=== PATIENT | female | born 1970 | race African-American/Black ===

== ENCOUNTER → 2023-09-26 10:12 | Outpatient (REF) | payer OTHER, SELFPAY | LOC: HWWDC 10:12 | PROVIDERS: ATTENDING PHYSICIAN Family Medicine | DX: Z12.31 Encounter for screening mammogram for malignant neoplasm of breast (principal) | CPT/HCPCS: 77063; 77067 ==

== ENCOUNTER → 2023-10-15 06:29 | Day surgery (SDC) | payer OTHER, SELFPAY | LOC: GI 06:29 | PROVIDERS: ATTENDING PHYSICIAN Internal Medicine | DX: Z12.11 Encounter for screening for malignant neoplasm of colon (principal) | CPT/HCPCS: G0121 ==

== ENCOUNTER → 2024-06-30 12:24 | Outpatient (REF) | payer BC, SELFPAY | LOC: HWRAD 12:24 | PROVIDERS: ATTENDING PHYSICIAN Family Medicine | DX: Z87.09 Personal history of other diseases of the respiratory system (principal); J45.901 Unspecified asthma with (acute) exacerbation; R05.1 Acute cough | CPT/HCPCS: 71046 ==

== ENCOUNTER 2024-08-28 15:50 | Emergency (ER) | payer BC, SELFPAY ==
[2024-08-28 15:56] VITALS: BP 149/84
[2024-08-28 16:16] LABS: % Basophils 1.1 % (0-2); % Eosinophils 10.6 % (0-6); % Immature Granulocytes 0.2 % (0-0.5); % Lymphocytes 43.1 % (20.5-51.1); % Monocytes 4.6 % (1.7-9.3); % Neutrophils 40.4 % (42.2-75.2); Absolute Basophils 0.1 10^3/uL (0-0.2); Absolute Eosinophils 0.6 10^3/uL (0-0.7); Absolute Lymphocytes 2.4 10^3/uL (1.2-3.4); Absolute Monocytes 0.3 10^3/uL (0.1-0.6); Absolute Neutrophils 2.2 10^3/uL (1.4-6.5); Hematocrit 37.9 % (37.0-47.0); Hemoglobin 12.4 g/dL (12.0-16.0); Mean Corp Hgb Conc. 32.7 g/dL (33.0-37.0); Mean Corpuscular Hgb 29.6 pg (27.0-31.0); Mean Corpuscular Volume 90.5 fL (81.0-99.0); Mean Platelet Volume 9.5 fL (7.4-10.4); Nucleated Red Blood Cells % 0 %; Platelet Count 338 10^3/uL (130-400); Red Blood Cell Count 4.19 10^6/uL (4.20-5.40); Red Cell Dist. Width 13.6 % (11.5-14.5); White Blood Cell Count 5.5 10^3/uL (4.8-10.8)
[2024-08-28 16:24] LABS: HCG, Serum Qualitative Screen Negative
[2024-08-28 16:29] LABS: ALT (SGPT) 18 U/L (0-35); AST (SGOT) 27 U/L (14-36); Albumin 4.5 g/dl (3.5-5.0); Alkaline Phosphatase 63 U/L (38-126); Blood Urea Nitrogen 12 mg/dl (7-17); Calcium 9.3 mg/dl (8.4-10.2); Carbon Dioxide 25 mmol/L (22-30); Chloride 103 mmol/L (98-107); Glucose 102 mg/dl (70-99); Lipase 177 U/L (23-300); Potassium 4.3 mmol/L (3.5-5.1); Sodium 138 mmol/L (135-145); Total Bilirubin 0.2 mg/dl (0.2-1.3); Total Protein 7.8 g/dl (6.3-8.2); eGFR > 60.00
[2024-08-28 16:42] LABS: Troponin I < 0.012 ng/ml
[2024-08-28 19:11] VITALS: BP 120/86; BMI 23.1
[2024-08-28 19:56] LABS: Troponin I < 0.012 ng/ml
[2024-08-28] MEDS: MAALOX 40 PO (20:19)
[2024-08-28 21:03] VITALS: BP 129/90
--- NOTE | 2024-08-28 21:03 | EDRN ---
Patient states her pain is much better after meds, Ed, PA aware and will discharge patient, patient is aware and getting dressed and will wait for paperwork
--- NOTE | 2024-08-28 21:25 | ED.GENMED ---
History of Present Illness
General
Chief Complaint: Chest Pain
Source: patient and spouse
Exam Limitations: none
Time Seen by Provider: 08/28/24 19:09
Nursing documentation reviewed up to this point in time: agreed with
History of Present Illness
History of Present Illness:
53-year-old female presenting to the emergency department today with concerns of central chest pressure over the past week intermittently no specific palliation or provocation with some radiation into the abdomen. Denies any associated shortness of
breath nausea vomiting or diaphoresis. Denies similar symptoms in the past. Not a smoker or drinker.
Past History
Past History
ED Past Medical History: Asthma
ED Past Surgical History: None
Social History
Tobacco: Non-smoker
Personal:
Living: with family
Review of Systems
Review of Systems
Allergies reviewed?: Yes
All Other Systems: ROS reviewed and negative except as documented in HPI and ROS
Phy Exam
Physical Exam
Physical Exam:
GENERAL: Alert , in no apparent distress
EYE: pupils equal and reactive
NECK: Supple, no significant adenopathy.
ENT: o/p clr, mmm.
CARDIAC: Regular rate and rhythm .
LUNGS: Clear breath sounds bilaterally, no acute respiratory distress, no wheezes/rales/rhonchi
ABDOMEN: Soft, without focal tenderness, no r/g, no cvat
NEUROLOGICAL: Alert and oriented, no focal neuro deficits
SKIN: Warm and dry, skin intact.
MUSCULOSKELETAL: No edema, well perfused.
PSYCH: Normal and appropriate interaction.
Scores
Heart Score for Chest Pain Patients
STEMI patient?: No
History: Slightly or Non-Suspicious
ECG: Normal
Age: >45 - <65 years
Risk Factors: No Risk Factors
Troponin: </= Normal Limit
Heart Score for Chest Pain Patients: 1
Heart Score Risk: 2.5% MACE over next 6 weeks
Course
Orders/Labs/Results
Orders:
Orders
08/28/24 15:51
Electrocardiogram (*1) Urgent
Reason for Study: Chest Pain
EKG- Treatment ONCE
08/28/24 16:00
Test Result ONCE
CR Chest - 2 Views Urgent
Comment:
Reason For Exam: chest pain
08/28/24 16:05
Complete Blood Count/With Diff Urgent
Comprehensive Metabolic Panel Urgent
HCG, Serum Qualitative Screen Urgent
Lipase Urgent
Troponin I Urgent
08/28/24 19:05
Electrocardiogram (*1) Urgent
Reason for Study: Chest Pain
08/28/24 19:06
EKG- Treatment ONCE
08/28/24 19:21
Troponin I Urgent
08/28/24 20:02
Mag Hydrox/Al Hydrox/Simeth [Maalox] 30 ml Phenobarb/Hyoscy/Atropine/Scop [] 10 ml PO NOW
08/28/24 20:19
Mag Hydrox/Al Hydrox/Simeth [Maalox] 30 ml .ROUTE .STK-MED ONE
Phenobarb/Hyoscy/Atropine/Scop [] 10 ml .ROUTE .STK-MED ONE
Abnormal Lab Results
08/28/24
16:05
RBC 4.19 L 10^6/uL
(4.20-5.40)
MCHC 32.7 L g/dL
(33.0-37.0)
Neutrophils % 40.4 L %
(42.2-75.2)
Eosinophils % 10.6 H %
(0-6)
Glucose 102 H mg/dl
(70-99)
08/28/24 16:05
08/28/24 16:05
Vital Signs
Initial and Last Documented VS:
Initial Vital Signs
Temp Pulse Resp BP Pulse Ox
99.1 F 82 16 149/84 100
08/28/24 15:56 08/28/24 15:56 08/28/24 15:56 08/28/24 15:56 08/28/24 15:56
Last Documented Vital Signs
Temp Pulse Resp BP Pulse Ox
99.1 F 79 16 129/90 100
08/28/24 15:56 08/28/24 21:03 08/28/24 21:03 08/28/24 21:03 08/28/24 21:03
MDM/Problems Addressed
MDM/Problems Addressed:
53-year-old female presenting to the emergency department today with concerns of central chest pressure with some radiation to her abdomen intermittently over the past week. No specific palliation or provocation. Vital signs are normal on arrival
labs unremarkable troponin negative EKG normal. Chest x-ray without acute abnormalities other than potential calcification seen by the radiologist. This was discussed thoroughly with the patient. Additional cardiac testing without emergent
findings here. Symptoms resolved here after receiving a green grabber. Due to the calcification patient will follow-up closely with cardiology however no signs of ACS at this time. Otherwise return precautions given.
*Critical Care Note
Total Time (30-74mins, 75-104mins- exclusive of procedures): Not Applicable
ED Attending Note
-
Portions of this chart may have been created with voice recognition software.� Occasional wrong word or��sound alike� substitutions may have occurred due to the inherent limitations of voice recognition software.
Discharge Plan
Departure
Patient Disposition: Home (Routine Discharge)
Date of Disposition: 08/28/24
Time of Disposition: 21:26
Patient with high blood pressure during this ER visit?: No
Condition: Good
Covid-19: Not Applicable
Discharge Problem:
Chest pain
Instructions: Acid Reflux and GERD in Adults (DC), Chest Pain DCA Follow Up
Prescriptions:
No Action
albuterol sulfate 1 PUFF HFA aerosol inhaler
2 puff inhalation R Q4HPRN PRN (Reason: cough, wheezing) Qty: 1 1RF
Patient Comments:
years ago per patient.
loratadine [Claritin] 10 mg Tablet
10 mg PO DAILY
multivitamin Tablet
1 tab PO DAILY
Referrals:
Caron Kent DO [Family Provider] -
Activity Restrictions/Additional Instructions:
You came to the emergency department today with concerns of chest discomfort. Here you had a very reassuring assessment. Please take Prilosec once daily as this could be a GI related issue. Please otherwise follow-up closely with cardiology.
Return for any worsening, new or concerning symptoms.
Interventions
Interventions:
*Risk Screen - Suicide Last Done: 08/28/24 19:54
*General Assessment Last Done: 08/28/24 19:54
*Neglect/Abuse Screening Last Done: 08/28/24 19:54
ED- Fall Risk Assessment Last Done: 08/28/24 19:54
*ED COVID-19 Vaccine History Last Done: 08/28/24 21:42
*Nursing Disposition Last Done: 08/28/24 21:42
ED- Cardiac Assessment Last Done: 08/28/24 19:54
Discharge Date and Time
Print Language: FRENCH
== END 2024-08-28 21:44 | disposition home or self-care (01) ==
LOC: EMR 15:50
PROVIDERS: Emergency Medicine; EMERGENCY PHYSICIAN Emergency Medicine; FAMILY PHYSICIAN Family Medicine
DX: R07.89 Other chest pain (principal); J45.909 Unspecified asthma, uncomplicated
CPT/HCPCS: 99283; 71046; 80053; 83690; 84484; 84703; 85025; 93005

== ENCOUNTER → 2024-09-08 08:29 | Outpatient (REF) | payer BC, SELFPAY | LOC: HWRAD 08:29 | PROVIDERS: ATTENDING PHYSICIAN Nurse Practitioner Adult Health; FAMILY PHYSICIAN Family Medicine | DX: N92.4 Excessive bleeding in the premenopausal period (principal); N85.2 Hypertrophy of uterus | CPT/HCPCS: 76830; 76856 ==

== ENCOUNTER → 2024-09-29 09:10 | Outpatient (REF) | payer BC, SELFPAY | LOC: HWWDC 09:10 | PROVIDERS: ATTENDING PHYSICIAN Nurse Practitioner Adult Health; FAMILY PHYSICIAN Family Medicine | DX: Z12.31 Encounter for screening mammogram for malignant neoplasm of breast (principal) | CPT/HCPCS: 77063; 77067 ==